=== PATIENT | male | born 1945 | race Caucasian/White ===

== ENCOUNTER 2017-08-28 08:35 | Day surgery (SDC) | payer BC ==
[2017-08-28 10:12] VITALS: BMI 25.0
[2017-08-28 11:27] VITALS: TEMP 9
[2017-08-28 15:56] VITALS: BP 110/60; PULSE 66
== END 2017-08-28 12:15 | disposition home or self-care (01) ==
LOC: JASU-ENDO 08:35
PROVIDERS: ATTEND Internal Medicine Gastroenterology
PROC: 0DJD8ZZ Inspection of Lower Intestinal Tract, Via Natural or Artificial Opening Endoscopic (ICD-10-PCS; principal; 2017-08-28 10:45)
DX: Z12.11 Encounter for screening for malignant neoplasm of colon (principal); Z86.010 Personal history of colon polyps; K64.8 Other hemorrhoids; K57.30 Diverticulosis of large intestine without perforation or abscess without bleeding; E11.9 Type 2 diabetes mellitus without complications; Z79.84 Long term (current) use of oral hypoglycemic drugs